=== PATIENT | female | born 2005 | race Caucasian/White ===

== ENCOUNTER 2023-08-23 16:14 | Emergency (ER) | payer SELFPAY ==
[2023-08-23 16:15] VITALS: PULSE 80
== END 2023-08-23 16:26 | disposition left against medical advice (07) ==
LOC: ER 16:14
DX: R10.9 Unspecified abdominal pain (principal); Z53.21 Procedure and treatment not carried out due to patient leaving prior to being seen by health care provider
CPT/HCPCS: 99281